=== PATIENT | female | born 1985 | race Caucasian/White ===

== ENCOUNTER 2018-10-06 08:38 | Emergency (ER) | payer BC ==
[2018-10-06 09:17] VITALS: BP 142/97
[2018-10-06] MEDS ORDERED: Metoclopramide 10 MG/2 ML SDV IVPUSH ONE (09:35)
[2018-10-06] MEDS ORDERED: HYDROmorphone 1 MG/ML Syringe IVPUSH ONE (09:35)
--- NOTE | 2018-10-06 09:38 | EDM.PDOC ---
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 Patient had a transvaginal abdominal assisted hysterectomy I believe September 17. She states she's had diffuse lower abdominal pain since the surgery and hasn't been able to wear jeans. Over the last few days she's had increasing lower abdominal pelvic pain. Pressure to sit particularly in the vulvar and perineal area. Bowel movements are also very painful. Voiding is okay. Nose abdominal and bloated. He said fever with some chills the last few nights. Grade fever at present. Does have a mild cough as well. Patient still has occasional vaginal discharge he states it' s very scant and rare. Onset: Gradual Onset Date: 10/03/18 (Increasing pelvic pain with development of fever and chills the last 2 days.) Duration: Day(s):, Getting Worse Location: Reports: Pelvis (Diffuse lower pelvis pain radiating into her lower back.) Quality: Reports: Ache, Other Severity: Moderate (Arnulfo pressure throbbing discomfort 78 out of 10.) Improves with: Reports: Rest Worsens with: Reports: Other Context: Reports: Other (Increasing pelvic pain since transvaginal hysterectomy with abdominal laparoscopic assist on September 17.). Denies: Activity (Walking and difficulty getting in and out of the vehicle oriented out of bed.), Exercise , Lifting, Sick Contact, Trauma Associated Symptoms: Reports: Fever/Chills, Loss of Appetite, Malaise. 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: Reports: Other (see below) (None.) Pelvic Pain Score (Numeric/FACES): 5 - Related Data Allergies Allergy/AdvReac Type Severity Reaction Status Date / Time amoxicillin [From Augmentin] Allergy Cannot Verified 10/06/18 09:16 Remember avocado Allergy Cannot Verified 10/06/18 09:16 Remember clavulanic acid Allergy Cannot Verified 10/06/18 09:16 [From Augmentin] Remember pineapple Allergy Cannot Verified 10/06/18 09:16 Remember walnut Allergy Cannot Verified 10/06/18 09:16 Remember Home Meds: Home Meds Albuterol [Ventolin HFA] 2 puff INH Q4H PRN 09/16/18 [History] Betamethasone Dipropionate [Diprosone 0.05% Crm] 1 dose TOP ASDIRECTED PRN 09/16 [History] Budesonide/Formoterol Fumarate [Symbicort 160-4.5 Mcg Inhaler] 1 puff INH DAILY 09/16/18 [History] EPINEPHrine [Epipen] 1 dose IM ASDIRECTED PRN 09/16/18 [History] Lactobacillus Acidophilus [Probiotic] 1 cap PO DAILY 09/16/18 [History] Lisinopril [Prinivil] 10 mg PO DAILY 09/16/18 [History] Mometasone Furoate [Nasonex] 1 dose NASBOTH DAILY 09/16/18 [History] Montelukast [Singulair] 10 mg PO DAILY 09/16/18 [History] Tiotropium [Spiriva Handihaler] 1 puff INH DAILY 09/16/18 [History] Ondansetron [Zofran ODT] 4 mg PO Q6H PRN #20 tab.dis 09/17/18 [Rx] oxyCODONE HCl/Acetaminophen [Percocet 5-325 mg Tablet] 1 each PO Q6H #30 tablet 09/17/18 [Rx] Meloxicam [Mobic] 15 mg PO DAILY #14 tablet 10/06/18 [Rx] Past Medical History HEENT History: Reports: Allergic Rhinitis, Impaired Vision Cardiovascular History: Reports: Hypertension Other Cardiovascular History: Pre-eclampsia in 2011 with first Respiratory History: Reports: Asthma Gastrointestinal History: Reports: GERD 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 2010. galactorrhea, irregular menses, uterus fibroma Musculoskeletal History: Reports: Other (See Below) Other Musculoskeletal History: foot pain Neurological History: Reports: Migraines Other Neuro History: Spinal Headache with last Psychiatric History: Reports: Anxiety, Depression Endocrine/Metabolic History: Reports: None Hematologic History: Reports: None Immunologic History: Reports: None Oncologic (Cancer) History: Reports: None Dermatologic History: Reports: Eczema Other Dermatologic History: Eczema - Past Surgical History Head Surgeries/Procedures: Reports: None HEENT Surgical History: Reports: Oral Surgery, Tonsillectomy Other HEENT Surgeries/Procedures: Tonsillectomy 2013. Molars removed 1994 Cardiovascular Surgical History: Reports: None Respiratory Surgical History: Reports: None GI Surgical History: Reports: None Female Surgical History: Reports: Section, Hysterectomy, Tubal Ligation Endocrine Surgical History: Reports: None Musculoskeletal Surgical History: Reports: None Oncologic Surgical History: Reports: None Dermatological Surgical History: Reports: None Social & Family History - Family History Cardiac: Reports: CAD Endocrine/Metabolic: Reports: Diabetes, type II - Tobacco Use Smoking Status *Q: Never Smoker Second Hand Smoke Exposure: No - Caffeine Use Caffeine Use: Reports: Coffee - Recreational Drug Use Recreational Drug Use: No - Living Situation & Occupation Living situation: Reports: ED ROS GENERAL - Review of Systems Review Of Systems: See Below Constitutional: Reports: Fever, Chills (Last night.), Malaise, Weakness, Decreased Appetite HEENT: Reports: No Symptoms Respiratory: Reports: Cough Cardiovascular: Reports: No Symptoms (Does have a mild minimally productive cough the last few days.) Endocrine: Reports: Fatigue GI/Abdominal: Reports: Abdominal Pain, Decreased Appetite (See history of present illness), Nausea (Intermittent nausea), Other (As stated on Colace since time of surgery to prevent constipation from occurring. Bowel movements are painful.) : Denies: Flank Pain, Frequency, Hematuria, Incontinence, Irregular Menses, Urgency, Urinary Retention Musculoskeletal: Reports: Back Pain (Diffuse low back pain starting in the abdomen.) Skin: Reports: No Symptoms, Other Neurological: Reports: No Symptoms (Surgical wounds have been healing well.) Psychiatric: Reports: No Symptoms Hematologic/Lymphatic: Reports: No Symptoms Immunologic: Reports: No Symptoms ED EXAM, GI/ABD - Physical Exam Exam: See Below Exam Limited By: No Limitations General Appearance: Alert, WD/WN, Mild Distress, Other (Does feel mildly warm to palpation.) Eyes: Bilateral: Normal Appearance (No jaundice) Neck: Normal Inspection, Supple, Non-Tender, Full Range of Motion. No: Lymphadenopathy (L), Lymphadenopathy (R) Respiratory/Chest: No Respiratory Distress, Lungs Clear, Normal Breath Sounds, Chest Non-Tender Cardiovascular: Normal Peripheral Pulses, Regular Rate, Rhythm, No Murmur, No Rub, Tachycardia (Resting heart rate of 1 10/m.) GI/Abdominal Exam: No Organomegaly, Guarding (Is very tender to palpation suprapubically. Mild guarding present.), Tender, Abnormal Bowel Sounds (Bowel sounds are decreased from the norm.), Other (Postoperative scopic surgical wounds particularly umbilical and across the right lower quadrant and suprapubically are healing well.). No: Distended (Does not clinically feel distended or tympanitic to percussion.), Rigid, Rebound Back Exam: Normal Inspection, Full Range of Motion. No: CVA Tenderness (L), CVA Tenderness (R) Extremities: Normal Inspection, Non-Tender, No Pedal Edema, Pedal Edema, Slow Capillary Refill Neurological: Alert, Oriented, CN II-XII Intact, Normal Cognition, Normal Reflexes Psychiatric: Normal Affect Skin Exam: Warm, Dry, Intact, Normal Color, No Rash Course - Vital Signs Last Recorded V/S: Last Vital Signs Temp 37.1 C 10/06/18 09:13 Pulse 110 H 10/06/18 09:13 Resp 18 10/06/18 09:13 BP 142/97 H 10/06/18 09:13 Pulse Ox 99 10/06/18 09:13 - Orders/Labs/Meds Orders: Active Orders 24 hr Category Date Time Status CULTURE BLOOD [BC] Stat Lab 10/06/18 10:05 Received CULTURE BLOOD [BC] Stat Lab 10/06/18 10:25 Received Dextrose 5%-0.9% NaCl [Dextrose 5%-Normal Saline] 1,000 Med 10/06/18 09:45 Active ml IV ASDIRECTED Blood Culture x2 Reflex Set [OM.PC] Stat Oth 10/06/18 09:36 Ordered Medication Orders Dextrose/Sodium Chloride (Dextrose 5%-Normal Saline) 1,000 mls @ 250 mls/hr IV ASDIRECTED IAN Last Admin: 10/06/18 10:43 Dose: 250 mls/hr Labs: Laboratory Tests 10/06/18 10/06/18 10/06/18 Range/Units 10:05 10:05 10:05 WBC 7.64 (3.98-10.04) K/mm3 RBC 4.97 (3.98-5.22) M/mm3 Hgb 14.4 (11.2-15.7) gm/L Hct 42.6 (34.1-44.9) % MCV 85.7 (79.4-94.8) fl MCH 29.0 (25.6-32.2) pg MCHC 33.8 (32.2-35.5) g/dl RDW Std Deviation 42.3 (36.4-46.3) fL Plt Count 334 (182-369) K/mm3 MPV 9.3 L (9.4-12.3) fl Neutrophils % (Manual) 72 H (40-60) % Band Neutrophils % 1 (0-10) % Lymphocytes % (Manual) 20 (20-40) % Atypical Lymphs % 0 % Monocytes % (Manual) 3 (2-10) % Eosinophils % (Manual) 4 (0.7-5.8) % Basophils % (Manual) 0 L (0.1-1.2) Platelet Estimate Adequate RBC Morph Comment Normal ESR 19 (0-20) mm/hr Sodium 140 (136-145) mEq/L Potassium 4.1 (3.5-5.1) mEq/L Chloride 106 (98-107) mEq/L Carbon Dioxide 23 (21-32) mEq/L Anion Gap 15.1 H (5-15) BUN 12 (7-18) mg/dL Creatinine 0.6 (0.55-1.02) mg/dL Est Cr Clr Drug Dosing 128.48 mL/min Estimated GFR (MDRD) > 60 (>60) mL/min BUN/Creatinine Ratio 20.0 H (14-18) Glucose 101 (74-106) mg/dL Calcium 9.2 (8.5-10.1) mg/dL Total Bilirubin 0.5 (0.2-1.0) mg/dL AST 17 (15-37) U/L ALT 24 (14-59) U/L Alkaline Phosphatase 81 (46-116) U/L C-Reactive Protein 0.9 (<1.0) mg/dL Total Protein 8.0 (6.4-8.2) g/dl Albumin 4.0 (3.4-5.0) g/dl Globulin 4.0 gm/dL Albumin/Globulin Ratio 1.0 (1-2) Urine Color (Yellow) Urine Appearance (Clear) Urine pH (5.0-8.0) Ur Specific [place] (1.005-1.030) Urine Protein (Negative) Urine Glucose (UA) (Negative) Urine Ketones (Negative) Urine Occult Blood (Negative) Urine Nitrite (Negative) Urine Bilirubin (Negative) Urine Urobilinogen (0.2-1.0) Ur Leukocyte Esterase (Negative) Urine RBC (0-5) /hpf Urine WBC (0-5) /hpf Ur Epithelial Cells (0-5) /hpf Urine Bacteria (FEW) /hpf Urine Mucus (FEW) /hpf 10/06/18 Range/Units 11:50 WBC (3.98-10.04) K/mm3 RBC (3.98-5.22) M/mm3 Hgb (11.2-15.7) gm/L Hct (34.1-44.9) % MCV (79.4-94.8) fl MCH (25.6-32.2) pg MCHC (32.2-35.5) g/dl RDW Std Deviation (36.4-46.3) fL Plt Count (182-369) K/mm3 MPV (9.4-12.3) fl Neutrophils % (Manual) (40-60) % Band Neutrophils % (0-10) % Lymphocytes % (Manual) (20-40) % Atypical Lymphs % % Monocytes % (Manual) (2-10) % Eosinophils % (Manual) (0.7-5.8) % Basophils % (Manual) (0.1-1.2) Platelet Estimate RBC Morph Comment ESR (0-20) mm/hr Sodium (136-145) mEq/L Potassium (3.5-5.1) mEq/L Chloride (98-107) mEq/L Carbon Dioxide (21-32) mEq/L Anion Gap (5-15) BUN (7-18) mg/dL Creatinine (0.55-1.02) mg/dL Est Cr Clr Drug Dosing mL/min Estimated GFR (MDRD) (>60) mL/min BUN/Creatinine Ratio (14-18) Glucose (74-106) mg/dL Calcium (8.5-10.1) mg/dL Total Bilirubin (0.2-1.0) mg/dL AST (15-37) U/L ALT (14-59) U/L Alkaline Phosphatase (46-116) U/L C-Reactive Protein (<1.0) mg/dL Total Protein (6.4-8.2) g/dl Albumin (3.4-5.0) g/dl Globulin gm/dL Albumin/Globulin Ratio (1-2) Urine Color Yellow (Yellow) Urine Appearance Clear (Clear) Urine pH 6.0 (5.0-8.0) Ur Specific [place] 1.015 (1.005-1.030) Urine Protein Negative (Negative) Urine Glucose (UA) Negative (Negative) Urine Ketones Negative (Negative) Urine Occult Blood 1+ H (Negative) Urine Nitrite Negative (Negative) Urine Bilirubin Negative (Negative) Urine Urobilinogen 0.2 (0.2-1.0) Ur Leukocyte Esterase Negative (Negative) Urine RBC 5-10 H (0-5) /hpf Urine WBC 0-5 (0-5) /hpf Ur Epithelial Cells 0-5 (0-5) /hpf Urine Bacteria Few (FEW) /hpf Urine Mucus Few (FEW) /hpf Meds: Medications Generic Name Dose Route Start Last Admin Trade Name Brendan PRN Reason Stop Dose Admin Dextrose/Sodium Chloride 1,000 mls @ 250 mls/hr 10/06/18 09:45 10/06/18 10:43 Dextrose 5%-Normal Saline IV 250 mls/hr ASDIRECTED IAN Administration Discontinued Medications Generic Name Dose Route Start Last Admin Trade Name Brendan PRN Reason Stop Dose Admin Diatrizoate Meglum/Diatrizoate Sod 90 ml 10/06/18 11:07 10/06/18 11:11 Gastrografin 37% PO 10/06/18 11:08 90 ml ONETIME ONE Administration Hydromorphone HCl 0.5 mg 10/06/18 09:35 10/06/18 10:44 Dilaudid IVPUSH 10/06/18 09:36 0.5 mg ONETIME ONE Administration Iopamidol 100 ml 10/06/18 11:07 Isovue-300 (61%) IVPUSH 10/06/18 11:08 ONETIME ONE Metoclopramide HCl 7.5 mg 10/06/18 09:35 10/06/18 10:44 Reglan IVPUSH 10/06/18 09:36 7.5 mg ONETIME ONE Administration Sodium Chloride 10 ml 10/06/18 11:07 10/06/18 11:11 Saline Flush FLUSH 10/06/18 11:08 10 ml ONETIME ONE Administration - Radiology Interpretation Free Text/Narrative:: 33-year-old female presents to the ED with gradually worsening pelvic pain since vaginal hysterectomy with laparoscopic assist done September 17. She's developed fever and chills the last few nights. Increasing pelvic pain particular pressure in the perineum to sit. Bowel movements are also painful. Her abdominal wounds appear to be healed well. She does have pain on deep palpation suprapubically. Problems voiding. Patient is painful. Query developing pelvic abscess. Plan IV D5 normal saline at 250 mils per hour. Dilaudid 0.5 mg IV for pain relief Reglan 7.5 mg IV. She'll be prepared for CT of the head with oral and IV contrast. 1 fever chest will be obtained since she does have a mild cough and a low-grade fever. Cultures 2 will be ordered. - Re-Assessments/Exams Free Text/Narrative Re-Assessment/Exam: 10/06/18 11:33 one view chest x-ray was carried out and it is within normal limits.White count is 7.64. Differential is 72% neutrophils and 1% band cells. Hemoglobin is 14.4 with hematocrit of 42.6. MCV is normal at 85.7. Platelet count 334,000. Sedimentation rate was 19. Sodium was 140 with a potassium of 4.1. Chloride is 106 with a bicarbonate of 23. And a gap is 15.1. BUN was 12 with a any new 0.6. GFR remains greater than 60. Glucose is 101. Calcium is 9.2. Liver function is normal. C-reactive protein was 0.9. Total protein is 8.0. Free Text/Narrative Re-Assessment/Exam: 10/06/18 11:36 CT of the abdomen and pelvis has been completed with oral and IV contrast. Visualized portions of the lung bases are clear. The liver is within normal limits. There is no ductal dilatation. Gallbladder is well- visualized no calcified gallstones identified. Pancreas appears normal. Adrenal glands appear normal. Kidneys and ureters appear normal. Bladder does fill nicely on delayed films. There is increased stool throughout the right hemicolon up to the hepatic flexure. Evaluation of the pelvis at the site of recent surgery(hysterectomy) shows no obvious fluid collections are evidence of abscess. Appendix is seen and is normal in size. Therefore I can't explain her persistent lower abdominal pressure pain discomfort. Suspect a better bowel treatment plan may be MiraLAX powder 17 g daily to provide bowel cleanse and regular bowel movements may be somewhat beneficial as almost are painful. She will have to follow-up with Dr. Sy in clinic for further evaluation of the vaginal cuff and perhaps transvaginal ultrasound. The appointment is booked in 2 days time for her three-week checkup. However this time I do not see any abscess or signs of an infective process. Labs also are essentially normal showing no active signs of infection with sedimentation rate of 19 and CRP of less than 0.9. Urinalysis is not yet available. 10/06/18 12:41 urinalysis shows 5-10 RBCs per per field but no signs of infection. She will therefore be discharged to home. Departure - Departure Time of Disposition: 12:42 Disposition: Home, Self-Care 01 Condition: Fair Clinical Impression: Postoperative lower abdominal pain, Constipation by delayed colonic transit - Discharge Information *PRESCRIPTION DRUG MONITORING PROGRAM REVIEWED*: Not Applicable *COPY OF PRESCRIPTION DRUG MONITORING REPORT IN PATIENT RAMO: Not Applicable Prescriptions: Meloxicam [Mobic] 15 mg PO DAILY #14 tablet Instructions: Constipation, Adult, [id number] Referrals: Orlando Sy MD [Physician] - Forms: ED Department Discharge Additional Instructions: Evaluation the emergency room today in regards to persistent lower abdominal pain perhaps worse over the last 3-4 days and particular a down the perineum as you has a marked awareness of when you sit down there is pressure pain discomfort. You're nearly 3 weeks post vaginal hysterectomy abdominal wounds appear to be healing well. Lab tests did not show any signs of infection or other abnormalities. CT of the abdomen was carried out with oral and IV contrast and it came back showing no major abnormalities in particular no evidence of free fluid or abscess formation at the surgical site. It did reveal increased stool throughout the right hemicolon compatible with mild constipation. It appears that you're still experiencing postoperative pain without any signs of active infection. I'm going to place you on meloxicam 15 mg once daily for the next 2 weeks to reduce pain and inflammation. Suggest using MiraLAX powder 17 g once daily for the next 2 weeks to make sure your bowels remain regular clean out the right hemicolon which was very full on CT scan. Otherwise plan on follow-up with Dr. Sy in the clinic to have a look at the vaginal cuff on Saturday as planned. Of note chest x-ray was within normal limits as well. Appears that he may have a mild viral upper spine tract infection causing cough and low-grade fever. Urinalysis was negative for any signs of infection. - My Orders Last 24 Hours: My Active Orders 10/06/18 09:36 Blood Culture x2 Reflex Set [OM.PC] Stat 10/06/18 09:45 Dextrose 5%-0.9% NaCl [Dextrose 5%-Normal Saline] 1,000 ml IV ASDIRECTED 10/06/18 10:05 CULTURE BLOOD [BC] Stat 10/06/18 10:25 CULTURE BLOOD [BC] Stat - Assessment/Plan Last 24 Hours: My Active Orders 10/06/18 09:36 Blood Culture x2 Reflex Set [OM.PC] Stat 10/06/18 09:45 Dextrose 5%-0.9% NaCl [Dextrose 5%-Normal Saline] 1,000 ml IV ASDIRECTED 10/06/18 10:05 CULTURE BLOOD [BC] Stat 10/06/18 10:25 CULTURE BLOOD [BC] Stat
[2018-10-06] MEDS ORDERED: Dextrose 5%-0.9% NaCl 1,000 ML IV SCH (09:45)
[2018-10-06] MEDS ORDERED: Diatrizoate Meglumine/Diatrizoate Sodium 37% 120 ML Bottle PO ONE (11:07)
[2018-10-06] MEDS ORDERED: Sodium Chloride 0.9% 10 ML Syringe FLUSH ONE (11:07)
[2018-10-06] MEDS ORDERED: Iopamidol 612 MG/ML 100 ML Bottle IVPUSH ONE (11:07)
--- NOTE | 2018-10-06 11:44 | CT ---
CT abdomen and pelvis Technique: Multiple axial sections were obtained from above the dome of the diaphragm inferiorly through the pubic symphysis. Intravenous and oral contrast was utilized. Comparison: No prior CT abdomen or pelvis exam is available. Findings: Small portion of the visualized lung bases are clear. Liver contains no focal abnormality. Gallbladder contains no calcified gallstones. Spleen appears within normal limits. Adrenal glands show no nodule. Pancreas is within normal limits. Several soft tissue nodules are noted between the pancreatic tail and spleen which are felt to represent incidental accessory splenic tissue. Aorta shows no aneurysm. Kidneys show symmetric contrast enhancement without hydronephrosis or mass. No retroperitoneal adenopathy is seen. No pelvic mass or adenopathy is seen. Appendix is seen which is normal in size. No free fluid or inflammatory change is seen within the abdomen or within the pelvis. Delayed images show contrast within the ureters and bladder. Previous hysterectomy is incidentally noted. Bone window settings were reviewed which appear within normal limits for the patient's age. Impression: 1. Incidental findings. Nothing acute is appreciated on CT study of the abdomen and pelvis. Diagnostic code #2
--- NOTE | 2018-10-06 12:05 | CR ---
Chest: Portable view of the chest was obtained. Comparison: Prior chest x-ray of 10/15/16. Heart size and mediastinum are normal. Lungs are clear. Bony structures are unremarkable. Impression: 1. Nothing acute is seen on portable chest x-ray. Diagnostic code #1
== END 2018-10-06 12:55 | disposition home or self-care (01) ==
LOC: JD.ED 08:38
DX: G89.18 Other acute postprocedural pain (principal); R10.2 Pelvic and perineal pain; K59.01 Slow transit constipation; I10 Essential (primary) hypertension; J45.909 Unspecified asthma, uncomplicated; Z90.710 Acquired absence of both cervix and uterus; Z88.1 Allergy status to other antibiotic agents; Z91.018 Allergy to other foods; Z98.51 Tubal ligation status; Z98.890 Other specified postprocedural states
CPT/HCPCS: 36415; 71045; 74177; 80053; 81001; 85007; 85027; 85652; 86140; 87040; 96361; 96374; 96375; 99284; J1170; J2765; J7042; Q9963

== ENCOUNTER 2019-02-11 07:24 | Day surgery (SDC) | payer BC ==
[~2019-02-11 07:24] MED LIST: Lactated Ringers 1,000 ML IV SCH; Lidocaine 1%/Sod Bicarbonate in NS 8.4% 1 ML Syringe IDERM PRN; Sodium Chloride 0.9% 10 ML Syringe FLUSH PRN
[2019-02-11] MEDS ORDERED: Scopolamine 1.5 MG Transdermal Patch TRDERM SCH (08:00)
[2019-02-11] MEDS ORDERED: Lidocaine 1% 10 ML MDV INJECT ONE (08:09)
[2019-02-11] MEDS ORDERED: Bupivacaine 0.5% 30 ML SDV ONE (10:03)
[2019-02-11] MEDS ORDERED: Lidocaine 1% with EPINEPHrine 1:100,000 20 ML MDV ONE (10:03)
[2019-02-11] MEDS ORDERED: Propofol 200 MG/20 ML SDV ONE ×2 (10:17→11:47)
--- NOTE | 2019-02-11 10:17 | PCM.PREANE ---
Preanesthetic Assessment - Procedure Proposed Procedure: excisional breast mass with needle localization - Anesthesia/Transfusion/Family Hx Anesthesia History: Prior Anesthesia Reaction (nausea and a long time to wake up ) Family History of Anesthesia Reaction: No Transfusion History: No Prior Transfusion(s) - Review of Systems General: No Symptoms Pulmonary: No Symptoms, Shortness of Breath (asthma) Cardiovascular: Dyspnea on Exertion Gastrointestinal: No Symptoms Neurological: No Symptoms Other: Reports: Depression, Anxiety - Physical Assessment NPO Status Date: 02/10/19 NPO Status Time: 20:00 O2 Sat by Pulse Oximetry: 95 Respiratory Rate: 16 Vital Signs: Last Vital Signs Temp 97.1 F 02/11/19 08:50 Pulse 93 02/11/19 08:50 Resp 16 02/11/19 08:50 BP 128/89 02/11/19 08:50 Pulse Ox 95 02/11/19 08:50 Height: 5 ft 7 in Weight: 111.584 kg ASA Class: 2 Mental Status: Alert & Oriented x3 Airway Class: Mallampati = 1 Dentition: Reports: Normal Dentition Thyro-Mental Finger Breadths: 3 Mouth Opening Finger Breadths: 3 ROM/Head Extension: Full Lungs: Clear to Auscultation, Normal Respiratory Effort, Decreased Breath Sounds Cardiovascular: Regular Rate, Regular Rhythm - Allergies Allergies/Adverse Reactions: Allergies Allergy/AdvReac Type Severity Reaction Status Date / Time walnut Allergy Severe Airway Verified 02/10/19 15:02 Tightness amoxicillin [From Augmentin] Allergy Rash Verified 02/10/19 15:02 clavulanic acid Allergy Rash Verified 02/10/19 15:02 [From Augmentin] seasonal Allergy Itching Uncoded 02/11/19 08:08 - Blood Blood Available: No - Acknowledgements Anesthesia Type Planned: MAC Pt an Appropriate Candidate for the Planned Anesthesia: Yes Alternatives and Risks of Anesthesia Discussed w Pt/Guardian: Yes Pt/Guardian Understands and Agrees with Anesthesia Plan: Yes PreAnesthesia Questionnaire HEENT History: Reports: Allergic Rhinitis, Impaired Vision Cardiovascular History: Reports: Hypertension Other Cardiovascular History: Pre-eclampsia in 2011 with first Respiratory History: Reports: Asthma Gastrointestinal History: Reports: Other (See Below) Other Gastrointestinal History: Heartburn 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: , Other (See Below) Other OB/BYN History: Granulation tissue vaginal cuff, infertility Musculoskeletal History: Reports: Other (See Below) Other Musculoskeletal History: Foot pain Neurological History: Reports: Migraines Other Neuro History: Spinal Headache with last Psychiatric History: Reports: Anxiety, Other (See Below) Other Psychiatric History: Post depression Endocrine/Metabolic History: Reports: Obesity/BMI 30+ Hematologic History: Reports: None Immunologic History: Reports: None Oncologic (Cancer) History: Reports: None Dermatologic History: Reports: Eczema Other Dermatologic History: Eczema - Past Surgical History Head Surgeries/Procedures: Reports: None HEENT Surgical History: Reports: Oral Surgery, Tonsillectomy Cardiovascular Surgical History: Reports: None Respiratory Surgical History: Reports: None GI Surgical History: Reports: None Female Surgical History: Reports: Section, Hysterectomy Endocrine Surgical History: Reports: None Neurological Surgical History: Reports: None Musculoskeletal Surgical History: Reports: None Oncologic Surgical History: Reports: None Dermatological Surgical History: Reports: None - SUBSTANCE USE Smoking Status *Q: Never Smoker Tobacco Use Within Last Twelve Months: No Second Hand Smoke Exposure: No Days Per Week of Alcohol Use: 2 Number of Drinks Per Day: 1 Total Drinks Per Week: 2 Recreational Drug Use History: No - HOME MEDS Home Medications: Home Meds Albuterol Sulfate [Proair Respiclick] 1 puff IH ASDIRECTED PRN 02/10/19 [History ] Budesonide/Formoterol [Symbicort 160-4.5 MCG] 2 puff INH BID 02/10/19 [History] EPINEPHrine [Epipen] 0.3 mg IM ASDIRECTED PRN 02/10/19 [History] Lisinopril 10 mg PO DAILY 02/10/19 [History] Mometasone Furoate [Nasonex] 2 spray NS ASDIRECTED 02/10/19 [History] Montelukast [Singulair] 10 mg PO DAILY 02/10/19 [History] Naproxen [Naprosyn] 500 mg PO Q12HR PRN 02/10/19 [History] Tiotropium [Spiriva] 1 puff INH ASDIRECTED 02/10/19 [History] - CURRENT (IN HOUSE) MEDS Current Meds: Current Medications Lactated Ringer's (Ringers, Lactated) 1,000 mls @ 125 mls/hr IV ASDIRECTED IAN Stop: 02/11/19 23:00 Last Admin: 02/11/19 09:10 Dose: 125 mls/hr Lidocaine/Sodium Bicarbonate (Buffered Lidocaine 1% In Ns 8.4%) 0.25 ml IDERM ONETIME PRN PRN Reason: Prior to IV Start Stop: 02/11/19 23:00 Last Admin: 02/11/19 09:10 Dose: 0.25 ml Scopolamine (Transderm-Scop) 1.5 mg TRDERM ONETIME IAN Stop: 02/11/19 18:00 Last Admin: 02/11/19 07:52 Dose: 1.5 mg Sodium Chloride (Saline Flush) 10 ml FLUSH ASDIRECTED PRN PRN Reason: Keep Vein Open Stop: 02/11/19 23:00 Discontinued Medications Bupivacaine HCl (Marcaine 0.5%) Confirm Administered Dose 30 ml .ROUTE .STK-MED ONE Stop: 02/11/19 10:04 Lidocaine HCl (Xylocaine 1%) 10 ml INJECT ONETIME ONE Stop: 02/11/19 08:10 Last Admin: 02/11/19 09:15 Dose: 3 ml Lidocaine/Epinephrine (Xylocaine 1% With Epinephrine 1:100,000) Confirm Administered Dose 20 ml .ROUTE .STK-MED ONE Stop: 02/11/19 10:04
[2019-02-11] MEDS ORDERED: fentaNYL 100 MCG/2 ML SDV ONE ×2 (10:18→11:46)
[2019-02-11] MEDS ORDERED: Midazolam 1 MG/ML 2 ML SDV ONE (10:18)
--- NOTE | 2019-02-11 10:23 | US ---
Ultrasound-guided breast needle localization Previous abnormality within the right breast at the 4 o'clock position 10 cm from the nipple is noted. This abnormality was localized. Patient prepped in usual fashion. Anesthesia was given with needle localization being placed. Tip of the needle was within the abnormality. Spring-hook wire then placed which showed the wire to be within the abnormality. Mammogram study was obtained which shows the needle localization wire in place. No corresponding mammogram finding seen to correlate to ultrasound. Impression: 1. Successful needle localization under ultrasound guidance with no corresponding mammogram finding seen on two-view post localization exam. Diagnostic code #2
[2019-02-11] MEDS ORDERED: Ketamine 500 mg/10 ML MDV ONE (10:42)
--- NOTE | 2019-02-11 10:48 | MY ---
Right mammogram: Craniocaudal and LM view of the right breast was obtained. Spring-hook wire is in place. No corresponding mammogram finding is seen to correlate to the ultrasound finding that was localized. Heterogeneously dense right breast is seen. Benign-appearing calcification is seen within the right breast. Impression: 1. Findings as noted above. BI-RADS 2 - benign findings
--- NOTE | 2019-02-11 12:18 | PCM48HPAN ---
Post Anesthesia Note - EVALUATION WITHIN 48HRS OF ANESTHETIC Vital Signs in Normal Range: Yes Patient Participated in Evaluation: Yes Respiratory Function Stable: Yes Airway Patent: Yes Cardiovascular Function Stable: Yes Hydration Status Stable: Yes Pain Control Satisfactory: Yes Nausea and Vomiting Control Satisfactory: Yes Mental Status Recovered: Yes Pulse Rate: 82 SaO2: 94 Resp Rate: 16 Temperature: 36.2 C Blood Pressure: 119/67
--- NOTE | 2019-02-11 12:19 | PCM.OPNOTE ---
- General Post-Op/Procedure Note Date of Surgery/Procedure: 02/11/19 Operative Procedure(s): RIGHT wire-localized excisional breast biopsy Findings: Breast tissue removed with wire intact, without wire exposure. Pre Op Diagnosis: RIGHT breast mass Post-Op Diagnosis: Same Anesthesia Technique: MAC Primary Surgeon: Alexi Haywood Anesthesia Provider: Tomeka Santos Pathology: RIGHT breast mass Fluid Replacement, Intraop: 900 (crystalloid) EBL in mLs: 2 Complications: None Condition: Good Free Text/Narrative:: Indications for surgery: The patient is 33 yo female, who was identified to have a 1 cm RIGHT breast complex cyst, that underwent unsuccessful attempt at core needle biopsy and aspiration (only blood was obtained). The patient strongly favored surgical excision. She was consented for needle-localized excisional biopsy of the RIGHT breast mass. Indications, risks, and benefits were discussed with the patient in detail. Description of procedure: After surgical consent was verified, the patient was brought to the main OR and placed supine. Anesthesia performed monitored anesthesia care. Appropriate padding and straps were placed. The RIGHT breast surgical site, including the wire, was prepped and draped in a sterile fashion. A surgical time-out was performed to verify proper patient, proper site, and proper procedure. The patient received a perioperative dose of IV Ancef. Attention was turned to the RIGHT breast. Local anesthetic consisting of a 1:1 solution of 1% lidocaine with epinephrine and 0.5% bupivacaine was injected into the subcutaneous tissue around the area of the exposed wire. A horizontal skin incision measuring about 5 cm was made to include the wire. Subcutaneous skin flaps were created superiorly and inferiorly. Dissected was carried down through the breast tissue, circumferentially around the wire. The excision biopsy was performed, including the entire wire without any portion of the wire exposed. The specimen was marked with a long suture along the lateral aspect and a short suture on the superior aspect. It was sent to mammogram, which confirmed that the entire wire was included in the specimen. The specimen was then sent to pathology for processing. The surgical site was thoroughly irrigated with water, and hemostasis was ensured. Additional local anesthetic was injected around the surgical site. The breast tissue was re-approximated with multiple interrupted 3-0 Vicryl sutures. The subcutaneous/dermal layer was reapproximated with multiple interrupted 3-0 Vicryl sutures. The skin was closed with a running 4-0 Monocryl in a subcuticular fashion. The skin incision was covered with Dermabond. The patient tolerated the procedure well, was brought out of anesthesia, and transported to the PACU in stable condition. At the end of the case, all needle , instrument, and gauze counts were correct. I was presented and scrubbed for the entirety of the case. Alexi Haywood M.D (Siri)., F.A.C.S. General Surgeon
--- NOTE | 2019-02-11 12:26 | MY ---
Surgical specimen radiograph: Single specimen radiograph was obtained with spring hook wire in place. Spring-hook wire appears to be within a nodule which correlates with ultrasound findings. Wire placed within the breast has been removed intact. Impression: 1. Spring-hook wire within a nodule which correlates with previous ultrasound findings. This would suggest successful biopsy. Diagnostic code #2
[2019-02-11] MEDS ORDERED: Ketorolac 30 MG/ML SDV IVPUSH ONE (12:34)
[2019-02-11 13:06] VITALS: BP 137/61
== END 2019-02-11 13:25 | disposition home or self-care (01) ==
LOC: JD.SDS 07:24
PROVIDERS: ATTEND Student in an Organized Health Care Education/Training Program
DX: N60.21 Fibroadenosis of right breast (principal); N60.09 Solitary cyst of unspecified breast; J45.909 Unspecified asthma, uncomplicated; I10 Essential (primary) hypertension; F41.9 Anxiety disorder, unspecified; F32.9 Major depressive disorder, single episode, unspecified; E66.9 Obesity, unspecified; Z68.39 Body mass index [BMI] 39.0-39.9, adult; Z79.1 Long term (current) use of non-steroidal anti-inflammatories (NSAID); Z79.52 Long term (current) use of systemic steroids; Z79.899 Other long term (current) drug therapy; Z79.51 Long term (current) use of inhaled steroids; Z88.0 Allergy status to penicillin; Z91.018 Allergy to other foods; Z88.1 Allergy status to other antibiotic agents
CPT/HCPCS: 19301; 76098; 76942; 77065; A9270; J1885; J2001; J2250; J2704; J3010; J3490; J7120; 00400

== ENCOUNTER 2019-10-01 13:06 | Emergency (ER) | payer BC ==
[2019-10-01 13:46] VITALS: BP 129/96; PULSE 124
[2019-10-01] MEDS ORDERED: Sodium Chloride 0.9% 10 ML Syringe FLUSH PRN (14:11)
[2019-10-01] MEDS ORDERED: Ondansetron 4 MG/2 ML SDV IVPUSH ONE (14:11)
[2019-10-01] MEDS ORDERED: Ketorolac 30 MG/ML SDV IVPUSH ONE (14:11)
[2019-10-01] MEDS ORDERED: Sodium Chloride 0.9% 1,000 ML IV SCH (14:15)
--- NOTE | 2019-10-01 14:37 | EDM.PDOC ---
ED HPI GENERAL MEDICAL PROBLEM - General Chief Complaint: Abdominal Pain Stated Complaint: ABD PAIN Time Seen by Provider: 10/01/19 13:13 Source of Information: Reports: Patient History Limitations: Reports: No Limitations - History of Present Illness INITIAL COMMENTS - FREE TEXT/NARRATIVE: Patient is a 34-year-old female who was sent to emergency department from Dr. Sy's clinic. She has had a history of lower abdominal pain for the last 4 days with some nausea and vomiting last night and today. She also recently developed a cough and congestion within the last day or so. She states her temperature at home was 102.3 tympanic this morning. She did take some Tylenol however she did vomit shortly thereafter. She denies any diarrhea but states she has been going more frequently. She has no known sick contacts CT abdomen pelvis, CBC, CRP, and urinalysis was completed in the clinic today. All were negative for any acute findings. There were no signs of appendicitis, her WBCs were normal, CRP was normal, and she does not have urinary tract infection. Patient was found to have granulomatous tissue in her vagina which Dr. Sy did remove and cauterize with silver nitrate today. Patient has a history of vaginal hysterectomy but does have both ovaries still. Lower Abdomen Pain Score (Numeric/FACES): 6 - Related Data Allergies Allergy/AdvReac Type Severity Reaction Status Date / Time walnut Allergy Severe Airway Verified 02/10/19 15:02 Tightness amoxicillin [From Augmentin] Allergy Rash Verified 02/10/19 15:02 clavulanic acid Allergy Rash Verified 02/10/19 15:02 [From Augmentin] seasonal Allergy Itching Uncoded 02/11/19 08:08 Home Meds: Home Meds Budesonide/Formoterol [Symbicort 160-4.5 MCG] 2 puff INH BID 02/10/19 [History] EPINEPHrine [Epipen] 0.3 mg IM ASDIRECTED PRN 02/10/19 [History] Lisinopril 10 mg PO DAILY 02/10/19 [History] Mometasone Furoate [Nasonex] 2 spray NS ASDIRECTED 02/10/19 [History] Montelukast [Singulair] 10 mg PO DAILY 02/10/19 [History] Naproxen [Naprosyn] 500 mg PO Q12HR PRN 02/10/19 [History] Tiotropium [Spiriva HandiHaler] 1 puff INH ASDIRECTED 02/10/19 [History] Dicyclomine [Bentyl] 20 mg PO Q8H PRN #10 tablet 10/01/19 [Rx] Levalbuterol HCl 1 puff INH BID 10/01/19 [History] Ondansetron [Zofran ODT] 4 mg PO Q6H PRN #10 tab.dis 10/01/19 [Rx] Past Medical History HEENT History: Reports: Allergic Rhinitis, Impaired Vision Cardiovascular History: Reports: Hypertension Other Cardiovascular History: Pre-eclampsia in 2010 with first Respiratory History: Reports: Asthma Gastrointestinal History: Reports: Other (See Below) Other Gastrointestinal History: Heartburn 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: , Other (See Below) 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 SHEET METAL ENGINEER History: Granulation tissue vaginal cuff, infertility Musculoskeletal History: Reports: Other (See Below) Other Musculoskeletal History: Foot pain Neurological History: Reports: Migraines Other Neuro History: Spinal Headache with last Psychiatric History: Reports: Anxiety, Other (See Below) Other Psychiatric History: Post depression Endocrine/Metabolic History: Reports: Obesity/BMI 30+ Hematologic History: Reports: None Immunologic History: Reports: None Oncologic (Cancer) History: Reports: None Dermatologic History: Reports: Eczema Other Dermatologic History: Eczema - Past Surgical History Head Surgeries/Procedures: Reports: None HEENT Surgical History: Reports: Oral Surgery, Tonsillectomy Cardiovascular Surgical History: Reports: None Respiratory Surgical History: Reports: None GI Surgical History: Reports: None Female Surgical History: Reports: Section, Hysterectomy Endocrine Surgical History: Reports: None Neurological Surgical History: Reports: None Musculoskeletal Surgical History: Reports: None Oncologic Surgical History: Reports: None Dermatological Surgical History: Reports: None Social & Family History - Family History Cardiac: Reports: CAD Endocrine/Metabolic: Reports: Diabetes, type II - Tobacco Use Smoking Status *Q: Never Smoker - Caffeine Use Caffeine Use: Reports: Coffee, Soda, Tea - Recreational Drug Use Recreational Drug Use: No - Living Situation & Occupation Living situation: Reports: ED ROS GENERAL - Review of Systems Review Of Systems: See Below Constitutional: Reports: Fever, Chills HEENT: Reports: Rhinitis Respiratory: Reports: Cough. Denies: Shortness of Breath, Wheezing Cardiovascular: Reports: No Symptoms Endocrine: Reports: No Symptoms GI/Abdominal: Reports: Abdominal Pain, Nausea, Vomiting. Denies: Diarrhea : Reports: No Symptoms. Denies: Dysuria Musculoskeletal: Reports: No Symptoms Skin: Reports: No Symptoms Neurological: Reports: Headache Psychiatric: Reports: No Symptoms Hematologic/Lymphatic: Reports: No Symptoms Immunologic: Reports: No Symptoms ED EXAM, GI/ABD - Physical Exam Exam: See Below Exam Limited By: No Limitations General Appearance: Alert, WD/WN, No Apparent Distress Respiratory/Chest: No Respiratory Distress, Lungs Clear, Normal Breath Sounds, No Accessory Muscle Use, Chest Non-Tender Cardiovascular: Normal Peripheral Pulses, Regular Rate, Rhythm, No Edema, No Murmur GI/Abdominal Exam: Normal Bowel Sounds, Soft, Other (mild diffuse tenderness throughout. No rebound tenderness in the right lower quadrant. Bowel sounds active 4) Neurological: Alert, Oriented, Normal Cognition Psychiatric: Normal Affect, Normal Mood Skin Exam: Warm, Dry, Intact, Normal Color, No Rash Course - Vital Signs Last Recorded V/S: Last Vital Signs Temp 98.6 F 10/01/19 13:44 Pulse 124 H 10/01/19 13:44 Resp 20 10/01/19 13:44 BP 129/96 H 10/01/19 13:44 Pulse Ox 95 10/01/19 13:44 - Orders/Labs/Meds Orders: Active Orders 24 hr Category Date Time Status Peripheral IV Care [RC] . DIRECTED Care 10/01/19 14:11 Active Sodium Chloride 0.9% [Normal Saline] 1,000 ml Med 10/01/19 14:15 Active IV ASDIRECTED Sodium Chloride 0.9% [Saline Flush] Med 10/01/19 14:11 Active 10 ml FLUSH ASDIRECTED PRN Peripheral IV Insertion Adult [OM.PC] Stat Oth 10/01/19 14:11 Ordered Medication Orders Sodium Chloride (Normal Saline) 1,000 mls @ 999 mls/hr IV ASDIRECTED IAN Last Admin: 10/01/19 14:45 Dose: 999 mls/hr Sodium Chloride (Saline Flush) 10 ml FLUSH ASDIRECTED PRN PRN Reason: Keep Vein Open Last Admin: 10/01/19 16:23 Dose: 10 ml Labs: Laboratory Tests 10/01/19 Range/Units 10:32 Sodium 138 (136-145) mEq/L Potassium 4.1 (3.5-5.1) mEq/L Chloride 103 (98-107) mEq/L Carbon Dioxide 22 (21-32) mEq/L Anion Gap 17.1 H (5-15) BUN 10 (7-18) mg/dL Creatinine 0.6 (0.55-1.02) mg/dL Est Cr Clr Drug Dosing 127.26 mL/min Estimated GFR (MDRD) > 60 (>60) mL/min BUN/Creatinine Ratio 16.7 (14-18) Glucose 101 (74-106) mg/dL Calcium 9.1 (8.5-10.1) mg/dL Total Bilirubin 0.4 (0.2-1.0) mg/dL AST 25 (15-37) U/L ALT 34 (14-59) U/L Alkaline Phosphatase 97 (46-116) U/L Total Protein 7.7 (6.4-8.2) g/dl Albumin 3.9 (3.4-5.0) g/dl Globulin 3.8 gm/dL Albumin/Globulin Ratio 1.0 (1-2) Meds: Medications Generic Name Dose Route Start Last Admin Trade Name Freq PRN Reason Stop Dose Admin Sodium Chloride 1,000 mls @ 999 mls/hr 10/01/19 14:15 10/01/19 14:45 Normal Saline IV 999 mls/hr ASDIRECTED IAN Administration Sodium Chloride 10 ml 10/01/19 14:11 10/01/19 16:23 Saline Flush FLUSH 10 ml ASDIRECTED PRN Administration Keep Vein Open Discontinued Medications Generic Name Dose Route Start Last Admin Trade Name Freq PRN Reason Stop Dose Admin Dicyclomine HCl 20 mg 10/01/19 15:59 10/01/19 16:22 Bentyl PO 10/01/19 16:00 20 mg ONETIME ONE Administration Ketorolac Tromethamine 30 mg 10/01/19 14:11 10/01/19 14:46 Toradol IVPUSH 10/01/19 14:12 30 mg ONETIME ONE Administration Ondansetron HCl 4 mg 10/01/19 14:11 10/01/19 14:48 Zofran IVPUSH 10/01/19 14:12 4 mg ONETIME ONE Administration - Re-Assessments/Exams Free Text/Narrative Re-Assessment/Exam: CT results and laboratory testing done with Dr. Sy reviewed. They're all found to be normal. I have added on a CMP as well as an influenza swab. Feels very possible that she is suffering from a viral gastroenteritis, however she does have some excess stool in her colon which may be contributing to this as well. I ordered 1 L of normal saline, Toradol 30 g IV for pain, and Zofran 4 mg IV for nausea. 10/01/19 16:00 patient's hematology was grossly unremarkable, with the exception of a mildly elevated anion gap at 17.1. She did receive 1 L of normal saline which should correct this. She verbalizes that she feels much better after the Toradol and Zofran administration. I did call and talk to general surgeon, Dr. Baig, he does not feel that this is an appendicitis that we are dealing with based on the negative CT results and hematology with no signs of bacterial infection. I feel it is likely that the patient is either suffering from a viral gastroenteritis or possibly some degree of constipation as she does have stool buildup in her right ascending colon as well as transverse colon. I ordered Bentyl to be given now. I will also send her prescription for Zofran and Bentyl to be used as needed. She states that she does have magnesium citrate at home. I recommend that she drank 5 ounces of this in addition to the oral contrast that she has already consumed. Discharge instructions as noted. Departure - Departure Time of Disposition: 16:02 Disposition: Home, Self-Care 01 Condition: Fair Clinical Impression: Abdominal pain Qualifiers: Abdominal location: generalized Qualified Code(s): R10.84 - Generalized abdominal pain - Discharge Information *PRESCRIPTION DRUG MONITORING PROGRAM REVIEWED*: No *COPY OF PRESCRIPTION DRUG MONITORING REPORT IN PATIENT RAMO: No Prescriptions: Dicyclomine [Bentyl] 20 mg PO Q8H PRN #10 tablet PRN Reason: Abdominal Pain Ondansetron [Zofran ODT] 4 mg PO Q6H PRN #10 tab.dis PRN Reason: Nausea/Vomiting Instructions: Abdominal Pain, Adult, [id number] Referrals: Orlando Sy MD [Primary Care Provider] - Forms: ED Department Discharge Additional Instructions: You were seen in the emergency Department today for generalized abdominal pain, nausea, and vomiting. Your workup included blood work, CT of the abdomen, as well as an influenza swab. All of the results of these tests were normal with the exception that she were mildly dehydrated. You did receive a liter of IV fluids, a dose of Toradol, as well as some Zofran for your nausea. I did speak with the general surgeon who does not believe that this isn't appendicitis. It is likely that sure suffering from a viral gastroenteritis or, as we discussed, possibly constipation at is causing the cramping. I would recommend that she take 5 ounces of magnesium citrate when you get home.additionally a prescription for Bentyl for abdominal cramping and Zofran for nausea has been sent to clinic pharmacy. Use his medications as prescribed. I recommend that you increase your fluid intake and rest as much as possible. Viral infections are generally self-limiting and resolve themselves within a few days. If you should experience any new or worsening symptoms, or your symptoms fail to improve as expected, please return to the emergency department or follow-up with her primary care provider. Sepsis Event Note - Evaluation Sepsis Screening Result: No Definite Risk - Focused Exam Vital Signs: Vital Signs Temp Pulse Resp BP Pulse Ox 10/01/19 13:44 98.6 F 124 H 20 129/96 H 95 Date Exam was Performed: 10/01/19 Time Exam was Performed: 16:53 - My Orders Last 24 Hours: My Active Orders 10/01/19 14:11 Peripheral IV Care [RC] . DIRECTED Sodium Chloride 0.9% [Saline Flush] 10 ml FLUSH ASDIRECTED PRN Peripheral IV Insertion Adult [OM.PC] Stat 10/01/19 14:15 Sodium Chloride 0.9% [Normal Saline] 1,000 ml IV ASDIRECTED - Assessment/Plan Last 24 Hours: My Active Orders 10/01/19 14:11 Peripheral IV Care [RC] . DIRECTED Sodium Chloride 0.9% [Saline Flush] 10 ml FLUSH ASDIRECTED PRN Peripheral IV Insertion Adult [OM.PC] Stat 10/01/19 14:15 Sodium Chloride 0.9% [Normal Saline] 1,000 ml IV ASDIRECTED
[2019-10-01] MEDS ORDERED: Dicyclomine 10 MG Cap PO ONE (15:59)
== END 2019-10-01 14:25 | disposition home or self-care (01) ==
LOC: JD.ED 13:06
DX: R10.84 Generalized abdominal pain (principal); I10 Essential (primary) hypertension; J45.909 Unspecified asthma, uncomplicated; F41.9 Anxiety disorder, unspecified; E66.9 Obesity, unspecified; Z68.41 Body mass index [BMI] 40.0-44.9, adult; Z88.1 Allergy status to other antibiotic agents; Z91.018 Allergy to other foods; Z91.048 Other nonmedicinal substance allergy status; Z79.899 Other long term (current) drug therapy
CPT/HCPCS: 36415; 80053; 87804; 96374; 96375; 99284; A9270; J1885; J2405; J7030

== ENCOUNTER 2020-09-16 15:06 | Emergency (ER) | payer BC ==
[2020-09-16 15:29] VITALS: BP 142/92; PULSE 113
--- NOTE | 2020-09-16 15:59 | EDM.PDOC ---
ED HPI GENERAL MEDICAL PROBLEM - General Chief Complaint: Respiratory Problem Stated Complaint: COVID +/SOB/CHEST TIGHTNESS Time Seen by Provider: 09/16/20 15:09 Source of Information: Reports: Patient, RN Notes Reviewed History Limitations: Reports: No Limitations - History of Present Illness INITIAL COMMENTS - FREE TEXT/NARRATIVE: Patient is a 35-year-old female presenting to the emergency department with complaints of chest tightness, shortness of breath, rib pain, cough, and fatigue. Symptoms began on August 29. She was tested for Covid on August 30 and received her positive results on September 02. Patient states initially in the illness she did have some nausea, vomiting, diarrhea, however that has resolved. She has had some intermittent fevers, however states she has not had fevers for quite some time. She was seen in the walk-in clinic on Saturday of this week and diagnosed with bilateral pneumonias. Started on azithromycin and Cipro. States she finished her azithromycin today and still has 2 days worth of Cipro left. Patient does have a history of asthma for which she has been using leave albuterol inhalers and neb treatments. Vital signs on triage showed a pulse of 113, blood pressure 142/92, respiratory rate 24, oxygen 98% on room air temperature 98.2. Patient does state that she has history of sinus tachycardia for which she is taking anxiety medications. Treatments COPY SUPERVISOR: Reports: Other (see below) Other Treatments COPY SUPERVISOR: [id number] Chest Pain Score (Numeric/FACES): 6 - Related Data Allergies Allergy/AdvReac Type Severity Reaction Status Date / Time amoxicillin [From Augmentin] Allergy Severe Rash Verified 09/16/20 15:21 clavulanic acid Allergy Severe Rash Verified 09/16/20 15:21 [From Augmentin] walnut Allergy Severe Airway Verified 02/10/19 15:02 Tightness seasonal Allergy Severe Itching Uncoded 09/16/20 15:21 Home Meds: Home Meds EPINEPHrine [Epipen] 0.3 mg IM ASDIRECTED PRN 02/10/19 [History] Lisinopril 10 mg PO DAILY 02/10/19 [History] Mometasone Furoate [Nasonex] 2 spray NS ASDIRECTED 02/10/19 [History] Dicyclomine [Bentyl] 20 mg PO Q8H PRN #10 tablet 10/01/19 [Rx] Acetaminophen/Codeine [Tylenol with Codeine No.3 300MG/30MG] 1 tab PO Q4H PRN # 15 tab 09/16/20 [Rx] Past Medical History HEENT History: Reports: Allergic Rhinitis, Impaired Vision Cardiovascular History: Reports: Hypertension Other Cardiovascular History: Pre-eclampsia in 2011 with first Respiratory History: Reports: Asthma Gastrointestinal History: Reports: Other (See Below) Other Gastrointestinal History: Heartburn 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: , Other (See Below) Other METAL ROOFING MECHANIC History: Granulation tissue vaginal cuff, infertility Musculoskeletal History: Reports: Other (See Below) Other Musculoskeletal History: Foot pain Neurological History: Reports: Migraines Other Neuro History: Spinal Headache with last Psychiatric History: Reports: Anxiety, Other (See Below) Other Psychiatric History: Post depression Endocrine/Metabolic History: Reports: Obesity/BMI 30+ Hematologic History: Reports: None Immunologic History: Reports: None Oncologic (Cancer) History: Reports: None Dermatologic History: Reports: Eczema Other Dermatologic History: Eczema - Infectious Disease History Infectious Disease History: Reports: Novel Coronavirus - Past Surgical History Head Surgeries/Procedures: Reports: None HEENT Surgical History: Reports: Oral Surgery, Tonsillectomy Other HEENT Surgeries/Procedures: Tonsillectomy 2012. Molars removed 1994 Cardiovascular Surgical History: Reports: None Respiratory Surgical History: Reports: None GI Surgical History: Reports: None Female Surgical History: Reports: Section, Hysterectomy Endocrine Surgical History: Reports: None Neurological Surgical History: Reports: None Musculoskeletal Surgical History: Reports: None Oncologic Surgical History: Reports: None Dermatological Surgical History: Reports: None Social & Family History - Family History Cardiac: Reports: CAD Endocrine/Metabolic: Reports: Diabetes, type II - Tobacco Use Tobacco Use Status *Q: Never Tobacco User - Caffeine Use Caffeine Use: Reports: Coffee, Soda, Tea - Recreational Drug Use Recreational Drug Use: No - Living Situation & Occupation Living situation: Reports: ED ROS GENERAL - Review of Systems Review Of Systems: See Below Constitutional: Reports: Weakness, Fatigue. Denies: Fever, Chills HEENT: Reports: No Symptoms Respiratory: Reports: Shortness of Breath, Pleuritic Chest Pain, Cough Cardiovascular: Reports: Chest Pain, Dyspnea on Exertion, Lightheadedness. Denies: Palpitations, Syncope Endocrine: Reports: No Symptoms GI/Abdominal: Reports: No Symptoms. Denies: Abdominal Pain, Diarrhea, Nausea, Vomiting : Reports: No Symptoms Musculoskeletal: Reports: Other (Bilateral chest wall pain) Skin: Reports: No Symptoms Neurological: Reports: Dizziness (Occasional) Psychiatric: Reports: No Symptoms Hematologic/Lymphatic: Reports: No Symptoms Immunologic: Reports: No Symptoms ED EXAM, GENERAL - Physical Exam Exam: See Below Exam Limited By: No Limitations General Appearance: Alert, WD/WN, No Apparent Distress Respiratory/Chest: No Respiratory Distress, Lungs Clear, Normal Breath Sounds, No Accessory Muscle Use, Chest Non-Tender, Other (Occasional dry cough with deep breathing.) Cardiovascular: Normal Peripheral Pulses, Regular Rate, Rhythm, No Edema, No Gallop, No JVD, No Murmur, No Rub GI/Abdominal: Normal Bowel Sounds, Soft, Non-Tender, No Organomegaly, No Disten tion, No Abnormal Bruit, No Mass Extremities: Normal Inspection, Normal Range of Motion, Non-Tender, Normal Capillary Refill, No Pedal Edema Neurological: Alert, Oriented, CN II-XII Intact, Normal Cognition, Normal Gait, Normal Reflexes, No Motor/Sensory Deficits Psychiatric: Normal Affect, Normal Mood Skin Exam: Warm, Dry, Intact, Normal Color, No Rash Course - Vital Signs Last Recorded V/S: Last Vital Signs Temp 98.2 F 09/16/20 15:27 Pulse 113 H 09/16/20 15:27 Resp 24 H 09/16/20 15:27 BP 142/92 H 09/16/20 15:27 Pulse Ox 98 09/16/20 15:27 - Orders/Labs/Meds Orders: Active Orders 24 hr Category Date Time Status EKG Documentation Completion [RC] STAT Care 09/16/20 15:23 Active Sodium Chloride 0.9% [Normal Saline] 100 ml Med 09/16/20 17:00 Active IV BOLUS Medication Orders Sodium Chloride (Normal Saline) 100 mls @ 60 mls/min IV BOLUS IAN Labs: Laboratory Tests 09/16/20 09/16/20 09/16/20 Range/Units 15:36 15:36 15:36 WBC 9.53 (3.98-10.04) K/mm3 RBC 5.06 (3.98-5.22) M/mm3 Hgb 14.7 (11.2-15.7) gm/dl Hct 44.4 (34.1-44.9) % MCV 87.7 (79.4-94.8) fl MCH 29.1 (25.6-32.2) pg MCHC 33.1 (32.2-35.5) g/dl RDW Std Deviation 42.2 (36.4-46.3) fL Plt Count 361 (182-369) K/mm3 MPV 9.1 L (9.4-12.3) fl Neut % (Auto) 62.9 (34.0-71.1) % Lymph % (Auto) 26.2 (19.3-51.7) % Rooks % (Auto) 7.9 (4.7-12.5) % Eos % (Auto) 2.3 (0.7-5.8) Baso % (Auto) 0.5 (0.1-1.2) % Neut # (Auto) 5.99 (1.56-6.13) K/mm3 Lymph # (Auto) 2.50 (1.18-3.74) K/mm3 Rooks # (Auto) 0.75 H (0.24-0.36) K/mm3 Eos # (Auto) 0.22 (0.04-0.36) K/mm3 Baso # (Auto) 0.05 (0.01-0.08) K/mm3 D-Dimer, Quantitative 1.13 H (0.19-0.50) mg/L Sodium 136 (136-145) mEq/L Potassium 3.6 (3.5-5.1) mEq/L Chloride 104 (98-107) mEq/L Carbon Dioxide 24 (21-32) mEq/L Anion Gap 11.6 (5-15) BUN 10 (7-18) mg/dL Creatinine 0.7 (0.55-1.02) mg/dL Est Cr Clr Drug Dosing 108.04 mL/min Estimated GFR (MDRD) > 60 (>60) mL/min BUN/Creatinine Ratio 14.3 (14-18) Glucose 92 (74-106) mg/dL Calcium 8.8 (8.5-10.1) mg/dL Total Bilirubin 0.9 (0.2-1.0) mg/dL AST 15 (15-37) U/L ALT 21 (14-59) U/L Alkaline Phosphatase 76 (46-116) U/L Troponin I < 0.017 (0.00-0.056) ng/mL C-Reactive Protein 0.5 (<1.0) mg/dL Total Protein 7.5 (6.4-8.2) g/dl Albumin 3.8 (3.4-5.0) g/dl Globulin 3.7 gm/dL Albumin/Globulin Ratio 1.0 (1-2) Meds: Medications Generic Name Dose Route Start Last Admin Trade Name Freq PRN Reason Stop Dose Admin Sodium Chloride 100 mls @ 60 mls/min 09/16/20 17:00 Normal Saline IV BOLUS IAN Discontinued Medications Generic Name Dose Route Start Last Admin Trade Name Freq PRN Reason Stop Dose Admin Iopamidol 100 ml 09/16/20 16:59 Isovue-370 (76%) IVPUSH 09/16/20 17:00 ONETIME ONE Sodium Chloride 10 ml 09/16/20 17:03 Saline Flush FLUSH 09/16/20 17:04 ONETIME ONE - Re-Assessments/Exams Free Text/Narrative Re-Assessment/Exam: Patient is a 35-year-old female presenting to the emergency department with complaints of ongoing cough, shortness of breath, fatigue, and chest wall pain. She was diagnosed as Covid positive at the beginning of August, however her symptoms have been present since August 29. She is no longer spiking fevers or having nausea or vomiting. She was seen at the clinic 1 week ago and started on antibiotics for pneumonia, however as I discussed with her, the pneumonia associated with Covid is viral, therefore the antibiotics will not resolve it. Discussed that we will rule out blood clots and cardiac abnormalities today. I have ordered CBC, CMP, CRP, D-dimer, chest x-ray, EKG 09/16/20 1655 Hematology was significant for D-dimer elevated at 1.13. Remainder of the blood work was normal. Troponin was negative. EKG showed no acute abnormalities. Chest x-ray also showed no acute abnormalities. I have ordered a CT angiogram of the chest to rule out PE. 09/16/20 18:52 CT angiogram of the chest interpreted by radiologist as follows: 1. No definite findings of pulmonary embolism. 2. Patchy areas of increased density within the left upper chest and left lower chest most likely representing areas of pneumonia. Please rule out Covid symptoms. 3. Slightly prominent lymph nodes within the lateral mediastinum. These are interval change from prior CT exam. Recommend follow-up study in 4 to 6 months to make sure these do not increase in size. 4. Other findings which are believed to be incidental as noted above. Discussed these findings with the patient. I will write a prescription for Tylenol with codeine to help with the pain and coughing. She is already done a course of steroids, therefore I do not feel it would be beneficial at this point. She is monitoring her oxygen saturations at home. Oxygen saturation in ER has maintained 97 to 99% on room air throughout her stay. She may continue to use her home inhaler and breathing treatments. Discussed that she should have a follow-up CT done in 4 to 6 months to reexamine the lymph nodes. This can be done with her primary care provider, Falguni Wiley. Recommend follow-up with your PCP early next week for reevaluation. Discharge instructions as documented. Departure - Departure Time of Disposition: 18:52 Disposition: Home, Self-Care 01 Condition: Good Clinical Impression: Pneumonia due to COVID-19 virus - Discharge Information *PRESCRIPTION DRUG MONITORING PROGRAM REVIEWED*: No *COPY OF PRESCRIPTION DRUG MONITORING REPORT IN PATIENT RAMO: No Prescriptions: Acetaminophen/Codeine [Tylenol with Codeine No.3 300MG/30MG] 1 tab PO Q4H PRN #15 tab PRN Reason: Pain Instructions: COVID-19 Frequently Asked Questions Referrals: Caity Miller PA-C [Primary Care Provider] - Forms: ED Department Discharge Additional Instructions: You were seen in the emergency department today for continued cough, shortness of breath, chest tightness, and fatigue with a known diagnosis of COVID-19. Work-up included blood work, chest x-ray, EKG, and a CT angiogram of the chest. Results of work-up were found to be overall normal, with the exception of some areas of viral pneumonia in your left lung as well as some slightly enlarged lymph nodes in your chest. As we discussed, pneumonia due to Covid is viral in nature, as opposed to bacterial, therefore antibiotics will not treat it. Recommend that you continue to use your asthma medications as previously prescribed. A prescription for Tylenol with codeine has been sent to [facility]. You may use this for pain, and the codeine will also help with your cough. Take this only as prescribed. Recommend follow-up with your primary care provider early next week for reevaluation. You should also schedule to have a repeat CT scan of your chest in 4 to 6 months to reevaluate the lymph nodes in your chest. Return to ER for any new or worsening symptoms of concern. Sepsis Event Note (ED) - Evaluation Sepsis Screening Result: No Definite Risk - Focused Exam Vital Signs: Vital Signs Temp Pulse Resp BP Pulse Ox 09/16/20 15:27 98.2 F 113 H 24 H 142/92 H 98 - My Orders Last 24 Hours: My Active Orders 09/16/20 15:23 EKG Documentation Completion [RC] STAT 09/16/20 17:00 Sodium Chloride 0.9% [Normal Saline] 100 ml IV BOLUS - Assessment/Plan Last 24 Hours: My Active Orders 09/16/20 15:23 EKG Documentation Completion [RC] STAT 09/16/20 17:00 Sodium Chloride 0.9% [Normal Saline] 100 ml IV BOLUS
--- NOTE | 2020-09-16 16:42 | CR ---
Chest: Portable view of the chest was obtained. Comparison: Prior chest x-ray of 10/06/18 and 10/15/16. Findings: Heart size and mediastinum are within normal limits for portable technique. Lungs are clear with no acute parenchymal change. Bony structures appear within normal limits. Impression: 1. Nothing acute seen on portable chest x-ray. 2. If patient remains symptomatic, repeat study is then recommended in 24-48 hours. Diagnostic code #1
[2020-09-16] MEDS ORDERED: Iopamidol 755 Mg/ML 100 ML Bottle IVPUSH ONE (16:59)
[2020-09-16] MEDS ORDERED: Sodium Chloride 0.9% 100 ML IV SCH (17:00)
[2020-09-16] MEDS ORDERED: Sodium Chloride 0.9% 10 ML Syringe FLUSH ONE (17:03)
--- NOTE | 2020-09-16 18:42 | CT ---
Pulmonary angiogram of chest Technique: Multiple axial sections through the chest were obtained. Intravenous contrast was utilized. Study has been performed as a pulmonary angiogram protocol. Comparison: Previous CT chest study of 04/15/14. Findings: Pulmonary arteries are fairly well opacified. No filling defects are seen to indicate pulmonary embolism. Thoracic aorta shows no aneurysm. Slightly prominent lymph nodes are seen within the lateral left mediastinum with largest measuring 1.8 cm. Slight adenopathy seen within left hilum. No pericardial thickening is seen. Two small accessory splenic areas of tissue seen medial to the spleen which are stable. Patchy areas of increased density are seen within left upper chest as well as within the left base. No pleural effusions are seen. No right-sided parenchymal densities are appreciated. Bone window settings were reviewed which show no acute osseous finding. Impression: 1. No definite findings of pulmonary embolism. 2. Patchy areas of increased density within left upper chest and left lower chest most likely representing areas of pneumonia. Please rule out COVID symptoms. 3. Slightly prominent lymph nodes within the lateral mediastinum. These are an interval change from prior CT exam. Recommend follow-up study in 4-6 months to make sure these do not increase in size. 4. Other findings which are believed to be incidental as noted above. Diagnostic code #9
== END 2020-09-16 19:26 | disposition home or self-care (01) ==
LOC: JD.ED 15:06
DX: U07.1 COVID-19 (principal); J12.89 Other viral pneumonia; I10 Essential (primary) hypertension; J45.909 Unspecified asthma, uncomplicated; E66.9 Obesity, unspecified; Z68.41 Body mass index [BMI] 40.0-44.9, adult; Z88.0 Allergy status to penicillin; Z88.1 Allergy status to other antibiotic agents; Z91.010 Allergy to peanuts; Z91.048 Other nonmedicinal substance allergy status; Z79.899 Other long term (current) drug therapy
CPT/HCPCS: 36415; 71045; 71045-26; 71275; 71275-26; 80053; 84484; 85025; 85379; 86140; 93005; 99284; 99285-25

== ENCOUNTER 2021-09-06 09:43 | Emergency (ER) | payer OTHER, BC ==
[2021-09-06 10:09] VITALS: BP 136/88; PULSE 89
[2021-09-06] MEDS ORDERED: Lidocaine 1% 10 ML MDV INJECT ONE (10:19)
--- NOTE | 2021-09-06 10:31 | EDM.PDOC ---
ED HPI GENERAL MEDICAL PROBLEM - General Chief Complaint: Laceration Stated Complaint: FINGER LAC Time Seen by Provider: 09/06/21 10:04 Source of Information: Reports: Patient History Limitations: Reports: No Limitations - History of Present Illness INITIAL COMMENTS - FREE TEXT/NARRATIVE: 36-year-old female presents the emergency department today with complaints of laceration to her right index finger. 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 Bleeding is controlled. Right Finger-Index Pain Score (Numeric/FACES): 6 - Related Data Allergies Allergy/AdvReac Type Severity Reaction Status Date / Time amoxicillin [From Augmentin] Allergy Severe Rash Verified 09/06/21 10:01 clavulanic acid Allergy Severe Rash Verified 09/06/21 10:01 [From Augmentin] walnut Allergy Severe Airway Verified 09/06/21 10:01 Tightness seasonal Allergy Severe Itching Uncoded 09/16/20 15:21 Home Meds: Home Meds Lisinopril 10 mg PO DAILY 02/10/19 [History] Mometasone Furoate [Nasonex] 2 spray NS ASDIRECTED 02/10/19 [History] Escitalopram [Lexapro] 20 mg PO DAILY 09/06/21 [History] Past Medical History HEENT History: Reports: Allergic Rhinitis, Impaired Vision Cardiovascular History: Reports: Hypertension Other Cardiovascular History: Pre-eclampsia in 2010 with first Respiratory History: Reports: Asthma Gastrointestinal History: Reports: Other (See Below) Other Gastrointestinal History: Heartburn 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: , Other (See Below) 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 ARTIFACTS CONSERVATOR History: Granulation tissue vaginal cuff, infertility Musculoskeletal History: Reports: Other (See Below) Other Musculoskeletal History: Foot pain Neurological History: Reports: Migraines Other Neuro History: Spinal Headache with last Psychiatric History: Reports: Anxiety, Other (See Below) Other Psychiatric History: Post depression Endocrine/Metabolic History: Reports: Obesity/BMI 30+ Hematologic History: Reports: None Immunologic History: Reports: None Oncologic (Cancer) History: Reports: None Dermatologic History: Reports: Eczema Other Dermatologic History: Eczema - Infectious Disease History Infectious Disease History: Reports: Novel Coronavirus - Past Surgical History Head Surgeries/Procedures: Reports: None HEENT Surgical History: Reports: Oral Surgery, Tonsillectomy Other HEENT Surgeries/Procedures: Tonsillectomy 2013. Molars removed 1994 Cardiovascular Surgical History: Reports: None Respiratory Surgical History: Reports: None GI Surgical History: Reports: None Female Surgical History: Reports: Section, Hysterectomy Endocrine Surgical History: Reports: None Neurological Surgical History: Reports: None Musculoskeletal Surgical History: Reports: None Oncologic Surgical History: Reports: None Dermatological Surgical History: Reports: None Social & Family History - Family History Cardiac: Reports: CAD Endocrine/Metabolic: Reports: Diabetes, type II - Caffeine Use Caffeine Use: Reports: Coffee, Soda, Tea - Living Situation & Occupation Living situation: Reports: ED ROS GENERAL - Review of Systems Review Of Systems: Comprehensive ROS is negative, except as noted in HPI. ED EXAM, SKIN/RASH Exam: See Below Exam Limited By: No Limitations General Appearance: Alert, WD/WN, No Apparent Distress Ears: Normal External Exam, Hearing Grossly Normal Nose: Normal Inspection Throat/Mouth: Normal Inspection, Normal Lips, Normal Voice, No Airway Compromise Head: Atraumatic, Normocephalic Neck: Normal Inspection, Supple Respiratory/Chest: No Respiratory Distress, No Accessory Muscle Use Cardiovascular: Normal Peripheral Pulses, Regular Rate, Rhythm GI/Abdominal: No Distention (Female) Exam: Deferred Rectal (Female) Exam: Deferred Back Exam: Normal Inspection Extremities: Normal Range of Motion, No Pedal Edema, Normal Capillary Refill, Other (1 cm laceration noted to the distal palmar aspect of right index finger) Neurological: Alert, Oriented, Normal Cognition Psychiatric: Normal Affect, Normal Mood Skin: Warm, Dry, Intact, Normal Color, No Rash Location, Skin: Upper Extremity, Right Characteristics: Linear Lymphatic: No Adenopathy ED SKIN PROCEDURES - Laceration/Wound Repair Right Distal Digit - 2nd (Index) Appearance: Superficial Distal NVT: Neuro & Vascular Intact Anesthetic Type: Local Local Anesthesia - Lidocaine (Xylocaine): 1% Plain Local Anesthetic Volume: 1cc Closed with: Sutures Lac/Wound length In cm: 1 Suture Size: 5-0 # of Sutures: 5 Suture Type: Nylon, Interrupted Course - Vital Signs Text/Narrative:: As stated above, patient presents with a laceration (1 cm) noted to palmar aspect of right distal index finger. Bleeding is controlled. Patient will need to be sutured to repair. I have ordered 1% lidocaine. Patient is unsure of her tetanus status so we will order Boostrix for her. Last Recorded V/S: Last Vital Signs Temp 97.5 F 09/06/21 10:05 Pulse 89 09/06/21 10:05 Resp 18 09/06/21 10:05 BP 136/88 09/06/21 10:05 Pulse Ox 98 09/06/21 10:05 - Orders/Labs/Meds Meds: Medications Discontinued Medications Generic Name Dose Route Start Last Admin Trade Name Brendan PRN Reason Stop Dose Admin Lidocaine HCl 10 ml 09/06/21 10:19 Lidocaine 1% 10 Ml Mdv INJECT 09/06/21 10:20 ONETIME ONE - Re-Assessments/Exams Free Text/Narrative Re-Assessment/Exam: 09/06/21 11:25 Wound was prepped and draped in sterile fashion prior to suturing. Departure - Departure Time of Disposition: 11:31 Disposition: Home, Self-Care 01 Condition: Good Clinical Impression: Laceration of index finger of right hand without complication - Discharge Information Instructions: Sutures, Colden, or Adhesive Wound Closure, [id number], Laceration Care, Adult, [id number] Referrals: Ruby Rushing, MANAGER OPERATIONS [Primary Care Provider] - Additional Instructions: You were seen in the emergency department today with laceration to right index finger. Laceration was repaired with sutures without incident. The sutures can be taken out in 7 to 10 days time. Recommend you leave the dressing in place for 24 hours. At that time you may remove your dressing and wash the wound twice daily with mild soap such as Alberto baby shampoo or Dial. Pat the wound dry and apply a thin film of bacitracin and a bandage. Watch for any signs and symptoms of infection such as increased redness, warmth, swelling or pus. Your tetanus shot was updated today. Make a note of this in your records as it is good for 10 years time. Sepsis Event Note (ED) - Evaluation Sepsis Screening Result: No Definite Risk - Focused Exam Vital Signs: Vital Signs Temp Pulse Resp BP Pulse Ox 09/06/21 10:05 97.5 F 89 18 136/88 98
[2021-09-06] MEDS ORDERED: Diphtheria,Pertussis(Acell),Tetanus Vaccine 0.5 ML Syringe IM ONE (11:30)
== END 2021-09-06 11:30 | disposition home or self-care (01) ==
LOC: JD.ED 09:43
DX: S61.210A Laceration without foreign body of right index finger without damage to nail, initial encounter (principal); I10 Essential (primary) hypertension; J45.909 Unspecified asthma, uncomplicated; E66.9 Obesity, unspecified; Z88.0 Allergy status to penicillin; Z91.048 Other nonmedicinal substance allergy status; Z91.018 Allergy to other foods; Z79.899 Other long term (current) drug therapy
CPT/HCPCS: 12001; 99282-25

== ENCOUNTER 2022-11-25 15:00 | Emergency (ER) | payer BC ==
[2022-11-25] MEDS ORDERED: Sodium Chloride 0.9% 10 ML Syringe FLUSH PRN (15:51)
[2022-11-25 15:53] VITALS: BP 157/101; PULSE 107
[2022-11-25] MEDS ORDERED: Sodium Chloride 0.9% 1,000 ML IV STA (16:14)
[2022-11-25] MEDS ORDERED: Ondansetron 4 MG/2 ML SDV IVPUSH ONE ×2 (16:14→18:49)
[2022-11-25] MEDS ORDERED: HYDROmorphone 0.5 MG/0.5 ML Syringe IVPUSH ONE ×2 (16:26→18:49)
[2022-11-25 16:57] LABS: ESTIMATED GFR 113 mL/min (>60)
[2022-11-25] MEDS ORDERED: Iopamidol 612 MG/ML 100 ML Bottle IVPUSH ONE (17:29)
[2022-11-25] MEDS ORDERED: Iopamidol 612 MG/ML 50 ML SDV IVPUSH ONE (17:29)
[2022-11-25] MEDS ORDERED: Sodium Chloride 0.9% 10 ML Syringe FLUSH ONE (17:30)
== END 2022-11-25 19:28 | disposition home or self-care (01) ==
LOC: JD.ED 15:00
DX: N83.202 Unspecified ovarian cyst, left side (principal); I10 Essential (primary) hypertension; J45.909 Unspecified asthma, uncomplicated; E66.9 Obesity, unspecified; Z68.41 Body mass index [BMI] 40.0-44.9, adult; Z88.0 Allergy status to penicillin; Z88.1 Allergy status to other antibiotic agents; Z91.018 Allergy to other foods; Z91.048 Other nonmedicinal substance allergy status; Z79.899 Other long term (current) drug therapy
CPT/HCPCS: 36415; 74177; 74177-26; 80053; 83690; 84703; 85025; 86140; 96361; 96374; 96375; 96376; 99284; 99284-25; J1170; J2405; J3490; J7030; Q9967

== ENCOUNTER 2024-03-10 10:08 | Day surgery (SDC) | payer BC, OTHER ==
[~2024-03-10 10:08] MED LIST changes: -Lactated Ringers 1,000 ML IV SCH; -Lidocaine 1%/Sod Bicarbonate in NS 8.4% 1 ML Syringe IDERM PRN; +Midazolam 1 MG/ML 2 ML SDV ONE; +Ondansetron 4 MG/2 ML SDV ONE; +Propofol 200 MG/20 ML SDV ONE; +Rocuronium 50 MG/5 ML Vial ONE; +Sodium Chloride 0.9% 10 ML Syringe FLUSH SCH; +ceFAZolin 2 GM Vial ONE; +fentaNYL 250 MCG/5 ML SDV ONE
[2024-03-10] MEDS ORDERED: ceFAZolin 2 GM Vial ONE (10:22)
[2024-03-10] MEDS ORDERED: Ondansetron 4 MG/2 ML SDV IVPUSH PRN (10:29)
[2024-03-10] MEDS: Lactated Ringers 1,000 ML IV SCH (10:45)
[2024-03-10 10:47] LABS: HEMATOCRIT 42.9 % (37.0-47.0); HEMOGLOBIN 14.6 gm/dl (12.0-16.0); MEAN CORPUSCULAR HEMOGLOBIN 29.3 pg (28.0-32.0); MEAN CORPUSCULAR VOLUME 86.1 fl (83.0-99.0); PLATELET COUNT,PLT 340 K/mm3 (150-400); RED BLOOD CELL COUNT 4.98 M/mm3 (4.10-5.30); WHITE BLOOD CELL COUNT,WBC 8.03 K/mm3 (3.9-11.3)
[2024-03-10] MEDS: Scopalamine 1mg/3day Transdermal Patch TOP SCH (10:58)
[2024-03-10 11:23] LABS: BAND PERCENT MAN 0 % (0-10); BASOPHILS PERCENT MAN 1 (0.1-1.2); EOSINOPHILS PERCENT MAN 2 % (0.7-5.8); LYMPHOCYTES % ATYPICAL MANUAL 0 %; LYMPHOCYTES PERCENT MAN 37 % (20-40); MONOCYTES PERCENT MAN 4 % (2-10)
[2024-03-10] MEDS ORDERED: Dexamethasone 4 MG/ML 5 ML MDV ONE (11:30)
[2024-03-10] MEDS ORDERED: Phenylephrine 1% 10 MG/ML SDV ONE (11:30)
[2024-03-10] MEDS: Bupivacaine 0.5% 30 ML SDV ONE (11:32)
[2024-03-10] MEDS ORDERED: Sugammadex Sodium 200 MG/2 ML VIAL IV ONE ×2 (12:00→12:01)
[2024-03-10 12:05] LABS: PLATELET COUNT ESTIMATE ADEQUATE
[2024-03-10] MEDS ORDERED: Lactated Ringers 1,000 ML IV ONE (12:15)
[2024-03-10] MEDS: fentaNYL 100 MCG/2 ML SDV IVPUSH PRN (12:35)
[2024-03-10] MEDS: Ketorolac 30 MG/ML SDV IVPUSH ONE (12:42)
[2024-03-10] MEDS: HYDROmorphone 0.5 MG/0.5 ML Syringe IVPUSH PRN (12:53)
[2024-03-10] MEDS: Acetaminophen/oxyCODONE 325-5 MG Tab PO SCH (13:55)
[2024-03-10 14:27] VITALS: BP 145/65; PULSE 81
== END 2024-03-10 14:15 | disposition home or self-care (01) ==
LOC: JD.SDS 10:08
PROVIDERS: ATTEND Obstetrics & Gynecology
DX: N73.6 Female pelvic peritoneal adhesions (postinfective) (principal); N80.109 Endometriosis of ovary, unspecified side, unspecified depth; J45.909 Unspecified asthma, uncomplicated; I10 Essential (primary) hypertension; F41.9 Anxiety disorder, unspecified; K21.9 Gastro-esophageal reflux disease without esophagitis; Z79.899 Other long term (current) drug therapy; Z88.0 Allergy status to penicillin; Z91.018 Allergy to other foods
CPT/HCPCS: 36415; 58661; 85007; 85027; 86850; 86900; 86901; A9270; J0665; J0690; J1100; J1170; J1885; J2250; J2371; J2405; J2704; J3010; J3490; J7120; 00840